=== PATIENT | male | born 1940 | race Caucasian/White ===

== ENCOUNTER 2020-01-09 06:53 | Outpatient (CLI) | payer MEDICARE, OTHER ==
[2020-01-09 16:36] LABS: #Eosinphils 0.2 thou/uL (0.0-0.7); #Lymphocytes 2.1 thou/uL (1.20-3.40); #Monocytes 0.4 thou/uL (0.11-0.59); #Neutrophils 3.9 thou/uL (1.40-6.50); %Basophils 0.6 % (0.0-1.0); %Eosinophils 2.6 % (0.0-10.0); %Lymphocytes 31.1 % (21.0-51.0); %Monocytes 6.2 % (0.0-10.0); %Neutrophils 59.4 % (42.0-75.0); Mean Corpuscular HGB CONC 31.4 g/dL (32.0-36.0); Mean Corpuscular Hemoglobin 30.1 pg (27.0-31.0); Mean Corpuscular Volume 96.1 fL (78.0-98.0); Mean Platelet Volume 9.3 fL (7.4-10.4); Platelet Count 186 thou/uL (130-400); RBC Distribution Width 13.4 % (11.5-14.5); Red Blood Cell (RBC) Count 4.63 mill/uL (4.70-6.10); White Blood Cell (WBC) Count 6.6 thou/uL (4.8-10.8)
[2020-01-09 17:00] LABS: INR-International Normal Ratio 0.9; Prothrombin Time 12.5 sec (12.0-14.7)
[2020-01-09 17:12] LABS: Bacteria/HPF None Seen HPF (None Seen); Bilirubin Negative (Negative); Blood, Urine Negative (Negative); Clarity Clear (Clear); Glucose, Urine (Dipstick) Normal (Negative); Leukocyte Negative Leu/uL (Negative); Nitrite Negative (Negative); Protein, Urine (Dipstick) Negative (Neg-Trace); RBC/HPF 0-3 HPF (0-3); Squamous Epithelial None Seen HPF (0-3); Urobilinogen Normal mg/dL (Less than 2); WBC/HPF 0-3 HPF (0-3)
[2020-01-09 17:31] LABS: Anion Gap 11 mmol/L (10-20); BUN (Urea Nitrogen) 17 mg/dL (8.4-25.7); Calc. Creatinine Clearance 0 mL/min (70-130); Carbon Dioxide 31 mmol/L (23-31); Chloride 103 mmol/L (98-107); Estimated GFR-MDRD 54; Glucose 126 mg/dL (83-110); Potassium 4.4 mmol/L (3.5-5.1); Sodium 141 mmol/L (136-145)
[2020-01-10 12:06] LABS: SARS-CoV-2 MS2 Positive; SARS-CoV-2 N Gene Negative; SARS-CoV-2 S Gene Negative; SARS-CoV-2 orf1ab Negative
== END 2020-01-09 06:54 | disposition home or self-care (01) ==
LOC: LABBT 06:53
PROVIDERS: ATTEND Orthopaedic Surgery
DX: Z01.818 Encounter for other preprocedural examination (principal); Z11.59 Encounter for screening for other viral diseases; M17.11 Unilateral primary osteoarthritis, right knee
CPT/HCPCS: 80048; 81001; 85025; 85610; 87081; 93005; U0003; 87635; 93010

== ENCOUNTER 2020-01-14 06:12 | Day surgery (SDC) | payer MEDICARE ==
[2020-01-08 12:06] VITALS: BMI 41.0
[2020-01-14] MEDS ORDERED: CEFAZOLIN 2 GM in Premix Bag 1 BAG IVPB SCH (07:45)
[2020-01-14] MEDS ORDERED: Tranexamic Acid 1,000 MG/10 ML VIAL ONE (08:01)
[2020-01-14] MEDS ORDERED: Sodium Chloride 0.9% 100 ML ONE (08:01)
[2020-01-14] MEDS ORDERED: Fentanyl 100 MCG/2 ML VIAL ONE ×4 (08:21→12:01)
[2020-01-14] MEDS ORDERED: Midazolam HCl 2 mg/2 ml Vial ONE (08:21)
[2020-01-14] MEDS ORDERED: HYDROcodone/Acetaminophen 10/325 mg Tablet PO PRN ×3 (08:42→09:15)
[2020-01-14] MEDS ORDERED: Promethazine HCl 25 MG/ML VIAL IM PRN ×2 (08:42→09:15)
[2020-01-14] MEDS ORDERED: Zolpidem Tartrate 5 MG TAB PO PRN ×2 (08:42→09:15)
[2020-01-14] MEDS ORDERED: diphenhydrAMINE 25 MG CAP PO PRN (08:42)
[2020-01-14] MEDS ORDERED: Fentanyl 100 MCG/2 ML VIAL SLOW IVP PRN ×2 (08:42→09:16)
[2020-01-14] MEDS ORDERED: traMADol HCl 50 MG TAB PO PRN ×3 (08:42→09:15)
[2020-01-14] MEDS ORDERED: Ondansetron PF 4 MG/2 ML Vial IVP PRN ×2 (08:42→09:15)
[2020-01-14] MEDS ORDERED: Acetaminophen 325 MG TAB PO PRN ×2 (08:42→09:15)
[2020-01-14] MEDS ORDERED: Acetaminophen 500 MG TAB PO PRN (08:44)
[2020-01-14] MEDS ORDERED: Albuterol Sulfate 1.25 MG/3 ML NEB NEB PRN (08:44)
[2020-01-14] MEDS ORDERED: MAGNESIUM GLYCINATE 100 MG PO SCH (09:00)
[2020-01-14] MEDS ORDERED: Aspirin 81 mg Enteric Coated Tablet PO SCH (09:00)
[2020-01-14] MEDS ORDERED: MULTIVITAMIN PO SCH (09:00)
[2020-01-14] MEDS ORDERED: IRON PO SCH (09:00)
[2020-01-14] MEDS ORDERED: FOLIC ACID PO SCH (09:00)
[2020-01-14] MEDS ORDERED: Ropivacaine HCl/PF 250 ML in Premix Bag 1 BAG NERVE BLCK SCH (09:15)
--- NOTE | 2020-01-14 11:31 | OP ---
DATE OF PROCEDURE: 01/14/2020 This is Cesario Shields PA-C dictating a report for Avi Wild MD. 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 PROCEDURE PERFORMED: Cemented cruciate-sparing computer-assisted navigated right total knee arthroplasty. EVENT MARKETING COORDINATOR: Cesario Shields PA-C ANESTHESIA: General via endotracheal tube augmented with indwelling adductor canal block and a single-shot sciatic block. COMPONENTS USED: [facility] Triathlon cemented size 6 primary cruciate-sparing femoral component with a size 6 cemented primary tibial baseplate, an 11 mm polyethylene fixed bearing insert, and A35 patella button. TOURNIQUET TIME: 54 minutes at 300 mmHg. FINDINGS: End-stage severe degenerative tricompartmental disease, [id number] arthrosis, periarticular osteophyte formation, large serous effusion, hypertrophic synovium, and suprapatellar scarring changes consistent with degenerative genu varum. ESTIMATED BLOOD LOSS: Less than 100. INPUT: 1000 mL of crystalloid. OUTPUT: Not measured. No Carpenter placed. DRAINS: None. SPECIMENS: None. COMPLICATIONS: None. COUNTS: Correct. INDICATION FOR SURGERY: John Paul is a 79-year-old white male who has had progressive right knee pain and problem with standing and walking for the last 5 to 7 years. He has failed conservative management and elected to proceed with total knee arthroplasty as definitive treatment of his pain. PROCEDURE IN DETAIL: After informed consent was obtained in the preoperative holding area, the patient was taken to the operative suite where general anesthesia was induced. Once adequate level of general anesthesia was obtained, the patient was positioned and a well-padded tourniquet was placed around the right proximal thigh. The right lower extremity was then prepped and draped in the usual sterile fashion. Prior to exsanguination, a time-out was called and all members of the surgical team agreed upon site, surgeon, and patient. The extremity was then exsanguinated and the tourniquet was raised. A midline longitudinal incision was then made directly over the patella extending 2 fingerbreadths above the superior pole of the patella and 2 fingerbreadths inferior to the inferior patellar pole of the patella. Deeper subcutaneous layers were dissected sharply and local bleeding was controlled with Bovie electrocautery. A quad tendon longitudinal split was then made sharply and a median parapatellar arthrotomy was carried out both sharp and with Bovie electrocautery, carried down to 1 fingerbreadth medial to the tibial tubercle. The knee was then placed into flexion and the patella was everted nicely, and a copious fat pad ectomy was performed, allowing for greater exposure of the tibia. The computer-assisted distal femoral fiducial was then placed and pinned firmly, and the distal femoral cutting guide was pinned firmly into place. The oscillating saw was then used to remove the appropriate amount of bone. The 4-in-1 cutting block was then placed on the distal femur and the oscillating saw was used to remove the appropriate amount of bone off the anterior, posterior, and chamfer cuts. After completion of bone cuts, the anterior cruciate ligament was resected sharply and the posterior cruciate ligament retractor was placed and the tibia was subluxed for better exposure. Partial meniscectomies were carried out, and the tibial computer-assisted fiducial was pinned, and the cutting guide was placed. Oscillating saw was then used to remove the bone, with Hohmann retractors used to take care and protect the collateral ligaments. After the tibial resection was performed, a laminar plastic tile setter was placed in between the freshened bone cuts. The knee placed at 90 degrees and further bilateral meniscectomies were carried out, and the curved osteotome and curettage were used to remove any excess bone spurs in the posterior compartment. The trial femoral component, tibial baseplate were placed with the appropriate polyethylene trial insert with an appropriate polyethylene spacer and patellar button. The knee was taken through full range of motion with flexion and extension from 0 to 90 degrees and patellar broach squarely in the trochlea without any squinting or subluxation noted. The knee was also stable to varus and valgus stressing at 0, 15, 45, and 90 degrees of flexion. The drawer was negative. All trial components were then removed and the keel punch was used to provide the appropriate defect in the tibia with a mallet. The freshened bone cuts were copiously irrigated with pulsatile lavage of about 1.5 L to remove all excess debris. The freshened bone cuts were then dried with suction and lap sponge. The knee was placed in flexion and retractors were placed to provide access to all bone cuts. Tobramycin-impregnated methyl methacrylate cement was then placed on the freshened bone cuts and implants which were malleted firmly into place. Curettage and Orange elevators were used to remove any excess bone cement. The knee was placed into full extension and the patellar button was placed under compression, and the cement was allowed to cure. Once completed, the components were again taken through full range of motion and copious irrigation of the knee was carried out with another liter of normal saline. All components were inspected fully with full range of motion and varus and valgus stressing. There was no laxity noted and full extension was observed clinically. Primary closure was accomplished with #2 interrupted Vicryl stitch of the arthrotomy defect. This was oversewn with a #2 running Quill barbed stitch. The subcutaneous layer was then closed with a running 0 barbed Monocryl stitch and skin closure accomplished with a running subcuticular 3-0 Monocryl barbed Quill stitch and augmented with cement on the skin. Tourniquet was lowered. Good spontaneous return of distal pulses was noted clinically and a sterile dressing was applied to the incision. The procedure was terminated without any complications. The patient was awakened in the operative suite and taken to the recovery room in stable condition. Job ID: [id number]
--- NOTE | 2020-01-14 11:48 | RAD ---
EXAM: 2 views of the right knee HISTORY: Knee arthroplasty COMPARISON: None FINDINGS: No knee effusion is seen. The patient is status post knee arthroplasty without perihardware lucency or fracture. Air in the soft tissues is from recent surgery. IMPRESSION: Status post knee arthroplasty without evidence of complication.
[2020-01-14] MEDS ORDERED: Bupivacaine HCl 0.5%/Epinephrine 1:200,000/PF 30 ml Vial ONE (14:24)
[2020-01-14] MEDS ORDERED: Ropivacaine 0.2% HCl/PF (40 MG/20 ML VIAL) ONE (14:24)
[2020-01-14] MEDS ORDERED: Esmolol 100 MG/10 ML VIAL ONE (14:24)
[2020-01-14] MEDS ORDERED: PHENYLEPHRINE-NS 100 MCG/ML 10 ML SYRINGE ONE (14:24)
[2020-01-14] MEDS ORDERED: Lidocaine 1% PF 5 ML VIAL ONE (14:24)
[2020-01-14] MEDS ORDERED: PROPOFOL 200 MG/20 ML VIAL ONE (14:24)
[2020-01-14] MEDS ORDERED: Ondansetron PF 4 MG/2 ML Vial ONE (14:24)
[2020-01-14] MEDS ORDERED: Ketorolac Tromethamine 30 MG/ML VIAL ONE (14:24)
[2020-01-14] MEDS ORDERED: Rocuronium Bromide 10 MG/ML (10ML VIAL) ONE (14:24)
[2020-01-14] MEDS ORDERED: Glycopyrrolate 0.2 MG/ML 5 ML SYRINGE ONE (14:24)
[2020-01-14] MEDS ORDERED: Dexamethasone 20 MG/5 ML VIAL ONE (14:24)
[2020-01-14] MEDS: CEFAZOLIN 2 GM in Premix Bag 1 BAG IVPB SCH ×2 (16:25→23:25)
[2020-01-14] MEDS: Aspirin 81 mg Enteric Coated Tablet PO SCH ×2 (16:57→20:39)
[2020-01-14] MEDS: Sodium Chloride 0.9% 1,000 ML IV SCH ×2 (16:57→20:34)
[2020-01-14] MEDS: Cholecalciferol 1,000 UNITS (25 MCG) TAB PO SCH (17:01)
[2020-01-14] MEDS: Escitalopram Oxalate 10 mg Tablet PO SCH (17:01)
[2020-01-14] MEDS: Ubidecarenone 50 MG CAP PO SCH (17:02)
[2020-01-14] MEDS: Ketorolac Tromethamine 30 MG/ML VIAL IVP SCH ×3 (17:02→23:23)
[2020-01-14] MEDS: Atorvastatin Calcium 20 MG TAB PO SCH (20:39)
[2020-01-14] MEDS: Gabapentin 300 MG CAP PO SCH (20:39)
[2020-01-14] MEDS: Losartan 25 MG TAB PO SCH (20:40)
[2020-01-14] MEDS: Tamsulosin HCl 0.4 MG CAP PO SCH (20:40)
[2020-01-14] MEDS: Pramipexole Di-HCl 1 MG TAB PO SCH (20:40)
[2020-01-14] MEDS ORDERED: GABAPENTIN 600 MG PO SCH (21:00)
[2020-01-14] MEDS: Melatonin 3 MG TAB PO PRN (21:24)
[2020-01-15] MEDS: Ketorolac Tromethamine 30 MG/ML VIAL IVP SCH ×4 (05:07→23:37)
[2020-01-15] MEDS: Sodium Chloride 0.9% 1,000 ML IV SCH ×2 (05:09→16:10)
[2020-01-15 07:09] LABS: Hemoglobin 11.6 g/dL (14.0-18.0); Mean Corpuscular HGB CONC 32.3 g/dL (32.0-36.0); Mean Corpuscular Hemoglobin 31.1 pg (27.0-31.0); Mean Corpuscular Volume 96.3 fL (78.0-98.0); Mean Platelet Volume 8.9 fL (7.4-10.4); Platelet Count 160 thou/uL (130-400); RBC Distribution Width 12.9 % (11.5-14.5); Red Blood Cell (RBC) Count 3.73 mill/uL (4.70-6.10); White Blood Cell (WBC) Count 10.6 thou/uL (4.8-10.8)
[2020-01-15] MEDS: Ubidecarenone 50 MG CAP PO SCH (08:20)
[2020-01-15] MEDS: Senokot S 8.6-50 MG TAB PO SCH ×2 (08:20→20:47)
[2020-01-15] MEDS: Cholecalciferol 1,000 UNITS (25 MCG) TAB PO SCH (08:20)
[2020-01-15] MEDS: Aspirin 81 mg Enteric Coated Tablet PO SCH ×2 (08:21→20:47)
[2020-01-15] MEDS: Multivitamin W/ Minerals 1 TAB PO SCH (08:21)
[2020-01-15] MEDS: Gabapentin 300 MG CAP PO SCH ×2 (08:21→20:48)
[2020-01-15] MEDS: Ferrous Gluconate 324 MG TAB PO SCH ×2 (08:21→17:06)
[2020-01-15] MEDS: Escitalopram Oxalate 10 mg Tablet PO SCH (08:21)
[2020-01-15] MEDS: HYDROcodone/Acetaminophen 10/325 mg Tablet PO PRN ×2 (16:12→23:40)
--- NOTE | 2020-01-15 18:03 | PRG ---
DATE OF SERVICE: 01/15/2020 SUBJECTIVE: John Paul is a 79-year-old male, postoperative day 1 from a right total knee arthroplasty. He is comfortable and his pain is controlled. He is doing very well. He has no complaints this morning. OBJECTIVE: VITAL SIGNS: Temperature 98, pulse 83, respiratory rate 16 and unlabored, and blood pressure 116/68. GENERAL: He is alert and oriented to person, place, time, and situation. Responsive and appropriate with examiner. SKIN: His incision is clean without any erythema and no strikethrough. MUSCULOSKELETAL: He is neurovascularly intact in the right lower extremity. He has a little bit of residual numbness from the block, but no weakness is noted. LABORATORY DATA: Hemoglobin and hematocrit of 11.6 and 35.9. IMPRESSION: This is a 79-year-old male, postoperative day 1 right total knee arthroplasty, doing well. PLAN: Continue current care. Probable discharge to home tomorrow. Job ID: [id number]
[2020-01-15] MEDS: Pramipexole Di-HCl 1 MG TAB PO SCH (20:47)
[2020-01-15] MEDS: Atorvastatin Calcium 20 MG TAB PO SCH (20:48)
[2020-01-15] MEDS: Losartan 25 MG TAB PO SCH (20:48)
[2020-01-15] MEDS: Tamsulosin HCl 0.4 MG CAP PO SCH (20:48)
[2020-01-15] MEDS: Melatonin 3 MG TAB PO PRN (22:32)
[2020-01-16] MEDS: Sodium Chloride 0.9% 1,000 ML IV SCH ×2 (00:29→10:27)
[2020-01-16] MEDS: Ketorolac Tromethamine 30 MG/ML VIAL IVP SCH (05:21)
[2020-01-16 06:07] LABS: Hemoglobin 10.9 g/dL (14.0-18.0); Mean Corpuscular HGB CONC 32.5 g/dL (32.0-36.0); Mean Corpuscular Volume 95.4 fL (78.0-98.0); Mean Platelet Volume 8.4 fL (7.4-10.4); Platelet Count 153 thou/uL (130-400); RBC Distribution Width 12.9 % (11.5-14.5); Red Blood Cell (RBC) Count 3.52 mill/uL (4.70-6.10); White Blood Cell (WBC) Count 9.9 thou/uL (4.8-10.8)
[2020-01-16 08:36] VITALS: BP 118/61
[2020-01-16] MEDS: Ferrous Gluconate 324 MG TAB PO SCH (10:09)
[2020-01-16] MEDS: Aspirin 81 mg Enteric Coated Tablet PO SCH (10:09)
[2020-01-16] MEDS: Multivitamin W/ Minerals 1 TAB PO SCH (10:10)
[2020-01-16] MEDS: Gabapentin 300 MG CAP PO SCH (10:10)
[2020-01-16] MEDS: Escitalopram Oxalate 10 mg Tablet PO SCH (10:10)
[2020-01-16] MEDS: Cholecalciferol 1,000 UNITS (25 MCG) TAB PO SCH (10:10)
[2020-01-16] MEDS: Ubidecarenone 50 MG CAP PO SCH (10:11)
[2020-01-16] MEDS: Senokot S 8.6-50 MG TAB PO SCH (10:11)
[2020-01-16 11:37] VITALS: TEMP 97.6
[2020-01-16] MEDS: HYDROcodone/Acetaminophen 10/325 mg Tablet PO PRN (12:26)
== END 2020-01-16 14:52 | disposition home or self-care (01) ==
LOC: SDC 06:12 → SURG A 13:30 → SDC 01-16 14:52
PROVIDERS: ATTEND Orthopaedic Surgery
PROC: 0SRC0J9 Replacement of Right Knee Joint with Synthetic Substitute, Cemented, Open Approach (ICD-10-PCS; principal; 2020-01-14)
PROC: 8E0YXBZ Computer Assisted Procedure of Lower Extremity (ICD-10-PCS; 2020-01-14)
PROC: 3E0T3BZ Introduction of Anesthetic Agent into Peripheral Nerves and Plexi, Percutaneous Approach (ICD-10-PCS; 2020-01-14)
PROC: 3E0T3BZ Introduction of Anesthetic Agent into Peripheral Nerves and Plexi, Percutaneous Approach (ICD-10-PCS; 2020-01-14)
DX: M17.11 Unilateral primary osteoarthritis, right knee (principal); M21.161 Varus deformity, not elsewhere classified, right knee; G89.18 Other acute postprocedural pain; I10 Essential (primary) hypertension; E78.5 Hyperlipidemia, unspecified; J43.9 Emphysema, unspecified; F32.9 Major depressive disorder, single episode, unspecified; F17.200 Nicotine dependence, unspecified, uncomplicated; G25.81 Restless legs syndrome; N40.0 Benign prostatic hyperplasia without lower urinary tract symptoms; Z79.82 Long term (current) use of aspirin; Z79.899 Other long term (current) drug therapy; Z95.5 Presence of coronary angioplasty implant and graft
CPT/HCPCS: 20985; 27447; 64445; 64448; 73560; 85027; 97110 ×3; 97116 ×3; 97139; 97530 ×2; C1713; C1776; 36415; J0670; J0690; J1100; J1885; J2001; J2250; J2405; J2704; J2795; J3010; J3370; J3490; J7030; J7620

== ENCOUNTER 2021-04-15 15:05 | Outpatient (CLI) | payer MEDICARE ==
[2021-04-15 16:48] LABS: #Basophils 0.1 10x3/uL (0.0-0.2); #Eosinphils 0.4 10x3/uL (0.0-0.5); #Monocytes 0.9 10x3/uL (0.0-1.1); #Neutrophils 4.2 10x3/uL (1.5-8.4); %Basophils 0.6 % (0.0-2.0); %Eosinophils 4.5 % (0.0-6.0); %Lymphocytes 33.1 % (18.0-47.0); %Monocytes 10.5 % (0.0-10.0); %Neutrophils 51.1 % (40.0-75.0); Hemoglobin 12.7 g/dL (13.5-17.5); Mean Corpuscular HGB CONC 30.8 g/dL (32.0-36.0); Mean Corpuscular Hemoglobin 29.5 pg (27.0-33.0); Platelet Count 189 10x3/uL (150-450); RBC Distribution Width 13.3 % (11.5-14.5); White Blood Cell (WBC) Count 8.2 10x3/uL (3.5-10.5)
[2021-04-15 17:09] LABS: INR-International Normal Ratio 0.9; Prothrombin Time 10.4 sec (9.5-12.1)
[2021-04-15 17:22] LABS: Anion Gap 14 mmol/L (10-20); BUN (Urea Nitrogen) 16 mg/dL (8.4-25.7); Calc. Creatinine Clearance 0 mL/min (70-130); Carbon Dioxide 31 mmol/L (23-31); Chloride 104 mmol/L (98-107); Glucose 96 mg/dL (83-110); Potassium 4.9 mmol/L (3.5-5.1); Sodium 144 mmol/L (136-145)
[2021-04-16 08:53] LABS: SARS-CoV-2 PCR by NAA Not Detected (NotDetected)
== END 2021-04-15 15:06 | disposition home or self-care (01) ==
LOC: LABBT 15:05
PROVIDERS: ATTEND Orthopaedic Surgery
DX: Z01.812 Encounter for preprocedural laboratory examination (principal); M17.12 Unilateral primary osteoarthritis, left knee; Z20.822 Contact with and (suspected) exposure to COVID-19
CPT/HCPCS: 80048; 85025; 85610; 87081; U0003; U0005

== ENCOUNTER 2021-04-19 06:34 | Inpatient (IN) | payer MEDICARE ==
[2021-04-19] MEDS ORDERED: Tranexamic Acid 1,000 MG/10 ML VIAL ONE (07:07)
[2021-04-19] MEDS ORDERED: ceFAZolin 2 GM/DEX 5% 100 ML BAG ONE (07:07)
[2021-04-19] MEDS ORDERED: Sodium Chloride 0.9% 100 ML ONE (07:08)
[2021-04-19] MEDS ORDERED: VANCOMYCIN 2 GRAM/400 ML BAG 2 GM in Premix Bag 1 BAG IVPB SCH (07:15)
[2021-04-19] MEDS ORDERED: Fentanyl 100 MCG/2 ML VIAL ONE ×4 (08:16→11:11)
[2021-04-19] MEDS ORDERED: Midazolam HCl 2 mg/2 ml Vial ONE (08:16)
[2021-04-19] MEDS ORDERED: HYDROcodone/Acetaminophen 10/325 mg Tablet PO PRN ×3 (09:10→10:30)
[2021-04-19] MEDS ORDERED: Fentanyl 100 MCG/2 ML VIAL SLOW IVP PRN (09:10)
[2021-04-19] MEDS ORDERED: Promethazine HCl 25 MG/ML VIAL IM PRN ×3 (09:10→11:10)
[2021-04-19] MEDS ORDERED: Ondansetron PF 4 MG/2 ML Vial IVP PRN ×2 (09:10→10:30)
[2021-04-19] MEDS ORDERED: Zolpidem Tartrate 5 MG TAB PO PRN ×2 (09:10→10:30)
[2021-04-19] MEDS ORDERED: Acetaminophen 325 MG TAB PO PRN (09:10)
[2021-04-19] MEDS ORDERED: diphenhydrAMINE 25 MG CAP PO PRN (09:10)
[2021-04-19] MEDS ORDERED: Non-Formulary Item 1 EACH (Albuterol Sulfate [Albuterol Sulfate Neb] 0.63 MG/3 ML Vial.Ne NEB PRN (09:11)
[2021-04-19] MEDS ORDERED: Non-Formulary Item 1 EACH (Albuterol Sulfate Hfa (Or) 200 PUFF Inh) INH PRN (09:11)
[2021-04-19] MEDS ORDERED: Albuterol Sulfate 2.5 mg/3 ml Neb NEB PRN (09:25)
[2021-04-19] MEDS ORDERED: ePHEDrine 50 MG/ML VIAL ONE (09:26)
[2021-04-19] MEDS ORDERED: Ondansetron PF 4 MG/2 ML Vial ONE (09:26)
[2021-04-19] MEDS ORDERED: Lidocaine 1% PF 5 ML VIAL ONE (09:26)
[2021-04-19] MEDS ORDERED: Ropivacaine 2% HCl/PF (20 MG/10 ML VIAL) ONE (09:26)
[2021-04-19] MEDS ORDERED: Bupivacaine PF 0.5% 30 ML VIAL ONE (09:26)
[2021-04-19] MEDS ORDERED: PROPOFOL 200 MG/20 ML VIAL ONE (09:26)
[2021-04-19] MEDS ORDERED: Dexamethasone 20 MG/5 ML VIAL ONE (09:26)
[2021-04-19] MEDS ORDERED: Ketorolac Tromethamine 30 MG/ML VIAL ONE (09:26)
[2021-04-19] MEDS ORDERED: Albuterol 200 PUFF (6.7GM INHALER) INH PRN (09:26)
[2021-04-19] MEDS ORDERED: Fentanyl 100 MCG/2 ML VIAL IV PRN (10:17)
[2021-04-19] MEDS ORDERED: traMADol HCl 50 MG TAB PO PRN ×2 (10:30)
[2021-04-19] MEDS ORDERED: Ropivacaine 0.2% 550 ML 550 ML NERVE BLCK SCH (10:30)
[2021-04-19] MEDS ORDERED: PACU-Morphine 4MG/ML VIAL SLOW IVP PRN (11:10)
[2021-04-19] MEDS ORDERED: Ondansetron HCl/PF 4 MG/2 ML Vial IVP PRN (11:10)
[2021-04-19] MEDS ORDERED: HYDROmorphone 2 MG/ML VIAL SLOW IVP PRN (11:10)
[2021-04-19] MEDS ORDERED: Promethazine HCl 25 MG/ML VIAL IVPB PRN (11:10)
[2021-04-19] MEDS ORDERED: HYDROmorphone 0.5 MG/0.5 ML SYRINGE ONE ×3 (11:54→12:28)
[2021-04-19] MEDS ORDERED: Promethazine HCl 25 MG/ML VIAL ONE (12:28)
[2021-04-19] MEDS ORDERED: CEFAZOLIN 2 GM in Premix Bag 1 BAG IVPB SCH (15:00)
[2021-04-19 15:16] VITALS: BMI 41.0
[2021-04-19] MEDS: Sodium Chloride 0.9% 1,000 ML IV SCH ×2 (15:43→21:13)
[2021-04-19] MEDS: ceFAZolin Sodium/D5W 2 GM in Premix Bag 1 BAG IVPB SCH ×2 (16:06→23:10)
[2021-04-19] MEDS: Senokot S 8.6-50 MG TAB PO SCH (20:56)
[2021-04-19] MEDS: Aspirin 81 mg Enteric Coated Tablet PO SCH (20:57)
[2021-04-19] MEDS: Ferrous Gluconate 324 MG TAB PO SCH (20:57)
[2021-04-19] MEDS ORDERED: Simvastatin 40 MG TAB PO SCH (21:00)
[2021-04-19] MEDS ORDERED: Losartan 25 MG TAB PO SCH (21:00)
[2021-04-19] MEDS ORDERED: Gabapentin 300 MG CAP PO SCH (21:00)
[2021-04-19] MEDS ORDERED: Pramipexole Di-HCl 1 MG TAB PO SCH (21:00)
[2021-04-19] MEDS ORDERED: Non-Formulary Item 1 EACH (Losartan Potassium [Losartan Potassium] 100 MG Tablet) PO SCH (21:00)
[2021-04-19] MEDS ORDERED: Tamsulosin HCl 0.4 MG CAP PO SCH (21:00)
[2021-04-19] MEDS ORDERED: Atorvastatin Calcium 20 MG TAB PO SCH (21:00)
[2021-04-19] MEDS ORDERED: Aspirin 81 mg Enteric Coated Tablet PO SCH (21:00)
[2021-04-19] MEDS ORDERED: GABAPENTIN 600 MG PO SCH (21:00)
[2021-04-19] MEDS: HYDROcodone/Acetaminophen 10/325 mg Tablet PO PRN (23:09)
[2021-04-20] MEDS: Sodium Chloride 0.9% 1,000 ML IV SCH ×2 (03:56→11:02)
[2021-04-20 06:55] LABS: Hemoglobin 11.5 g/dL (14.0-18.0); Mean Corpuscular HGB CONC 32.7 g/dL (32.0-36.0); Mean Corpuscular Hemoglobin 31.4 pg (27.0-31.0); Mean Corpuscular Volume 96.1 fL (78.0-98.0); Mean Platelet Volume 8.3 fL (7.4-10.4); Platelet Count 183 thou/uL (130-400); RBC Distribution Width 12.4 % (11.5-14.5); Red Blood Cell (RBC) Count 3.66 mill/uL (4.70-6.10); White Blood Cell (WBC) Count 13.4 thou/uL (4.8-10.8)
[2021-04-20] MEDS: Aspirin 81 mg Enteric Coated Tablet PO SCH (08:09)
[2021-04-20] MEDS: Senokot S 8.6-50 MG TAB PO SCH (08:09)
[2021-04-20] MEDS: HYDROcodone/Acetaminophen 10/325 mg Tablet PO PRN ×2 (08:11→11:51)
[2021-04-20] MEDS: Ferrous Gluconate 324 MG TAB PO SCH (08:12)
[2021-04-20] MEDS ORDERED: FOLIC ACID PO SCH (09:00)
[2021-04-20] MEDS ORDERED: Multivitamin W/ Minerals 1 TAB PO SCH ×2 (09:00)
[2021-04-20] MEDS ORDERED: [UNRECOGNIZED DRUG - OTHER] PO SCH (09:00)
[2021-04-20] MEDS ORDERED: Cholecalciferol 1,000 UNITS (25 MCG) TAB PO SCH (09:00)
[2021-04-20] MEDS ORDERED: Escitalopram Oxalate 10 mg Tablet PO SCH (09:00)
[2021-04-20] MEDS ORDERED: Magnesium Oxide 250 MG TAB PO SCH (09:00)
[2021-04-20] MEDS ORDERED: MULTIVITAMIN PO SCH (09:00)
[2021-04-20] MEDS ORDERED: Non-Formulary Item 1 EACH (Magnesium Glycinate [Mag Glycinate] 100 MG Tablet) PO SCH (09:00)
[2021-04-20] MEDS ORDERED: IRON PO SCH (09:00)
[2021-04-20] MEDS ORDERED: Non-Formulary Item 1 EACH (Cholecalciferol (Vitamin D3) [Vitamin D3] 5000 UNIT Capsule) PO SCH (09:00)
[2021-04-20 11:05] VITALS: BP 121/64; TEMP 98.1
[2021-04-20] MEDS ORDERED: FLU VACC QS2021-22(65YR UP)/PF 240 MCG/0.7 ML SYRINGE IM ONE (15:30)
== END 2021-04-20 15:41 | disposition home health service (06) | DRG 470 ==
LOC: SDC 06:34 → SURG B 09:13
PROVIDERS: ADMIT Orthopaedic Surgery; ATTEND Orthopaedic Surgery
PROC: 0SRD0J9 Replacement of Left Knee Joint with Synthetic Substitute, Cemented, Open Approach (ICD-10-PCS; principal; 2021-04-19)
DX: M17.12 Unilateral primary osteoarthritis, left knee (principal); Z20.822 Contact with and (suspected) exposure to COVID-19; I10 Essential (primary) hypertension; E78.5 Hyperlipidemia, unspecified; I25.10 Atherosclerotic heart disease of native coronary artery without angina pectoris; J43.9 Emphysema, unspecified; G25.81 Restless legs syndrome; F17.210 Nicotine dependence, cigarettes, uncomplicated; F32.A Depression, unspecified; N40.0 Benign prostatic hyperplasia without lower urinary tract symptoms; Z79.51 Long term (current) use of inhaled steroids; Z79.82 Long term (current) use of aspirin; Z79.899 Other long term (current) drug therapy
CPT/HCPCS: 36415; 85027; 93005; 93010; A4306; C1713; C1776; J1100; J1170; J1885; J2250; J2405; J2550; J2704; J2795; J3010; J3370; J3490; J7620; Q0163; S0020

== ENCOUNTER 2022-11-25 06:23 | Day surgery (SDC) | payer MEDICARE ==
[2022-11-24 11:56] VITALS: BMI 41.0
[2022-11-25] MEDS ORDERED: Lidocaine 1% PF 5 ML VIAL ONE (08:57)
[2022-11-25] MEDS ORDERED: PROPOFOL 200 MG/20 ML VIAL ONE (08:57)
== END 2022-11-25 10:45 | disposition home or self-care (01) ==
LOC: SDC 06:23
PROVIDERS: ATTEND Internal Medicine
PROC: 0D758ZZ Dilation of Esophagus, Via Natural or Artificial Opening Endoscopic (ICD-10-PCS; principal; 2022-11-25)
PROC: 0DBL8ZX Excision of Transverse Colon, Via Natural or Artificial Opening Endoscopic, Diagnostic (ICD-10-PCS; 2022-11-25)
DX: D12.3 Benign neoplasm of transverse colon (principal); R13.10 Dysphagia, unspecified; K64.8 Other hemorrhoids; K62.89 Other specified diseases of anus and rectum; K21.9 Gastro-esophageal reflux disease without esophagitis; M19.90 Unspecified osteoarthritis, unspecified site; J44.9 Chronic obstructive pulmonary disease, unspecified; I10 Essential (primary) hypertension; E78.00 Pure hypercholesterolemia, unspecified; G47.30 Sleep apnea, unspecified; Z87.891 Personal history of nicotine dependence; Z79.82 Long term (current) use of aspirin; Z79.899 Other long term (current) drug therapy; Z95.5 Presence of coronary angioplasty implant and graft
CPT/HCPCS: 88305; J2704

== ENCOUNTER 2024-07-19 12:56 | Outpatient (CLI) | payer MEDICARE, OTHER | END 2024-07-19 12:57 | disposition home or self-care (01) | LOC: BICRAD 12:56 | PROVIDERS: ATTEND Family Medicine | DX: M79.89 Other specified soft tissue disorders (principal) | CPT/HCPCS: 36415; 80053; 84550; 85025; 86140 ==

== ENCOUNTER 2025-06-02 15:04 | Outpatient (CLI) | payer OTHER | END 2025-06-02 15:05 | disposition home or self-care (01) | LOC: BICRAD 15:04 | PROVIDERS: ATTEND Family Medicine | DX: S69.92XA Unspecified injury of left wrist, hand and finger(s), initial encounter (principal); W19.XXXA Unspecified fall, initial encounter; S52.515A Nondisplaced fracture of left radial styloid process, initial encounter for closed fracture; S52.615A Nondisplaced fracture of left ulna styloid process, initial encounter for closed fracture ==